=== PATIENT | male | born 1940 | race Caucasian/White ===

== ENCOUNTER 2018-09-06 16:01 | Emergency (ER) | payer OTHER ==
[~2018-09-06] VITALS: Ht 172.7 cm; Wt 70.0 kg
[~2018-09-06 16:01] MED LIST: CEPHALEXIN500 MG PO; LIPITOR20 MG PO; METFORMIN850 MG PO
[2018-09-06 16:49] VITALS: BP 134/60
== END 2018-09-06 17:00 | disposition home or self-care (01) | DRG 552 ==
LOC: ED 16:01
DX: M54.16 Radiculopathy, lumbar region (principal); E11.9 Type 2 diabetes mellitus without complications; E78.00 Pure hypercholesterolemia, unspecified

== ENCOUNTER 2022-09-21 15:35 | Observation (INO) | payer OTHER ==
[2022-09-21] VITALS (29 sets, daily range): BP systolic 46–155; BP diastolic 21–91
[~2022-09-21] VITALS: Ht 172.7 cm; Wt 63.6 kg
--- NOTE | 2022-09-21 15:55 | NUR ---
PT TO TX ROOM 9
--- NOTE | 2022-09-21 16:20 | NUR ---
PT IN ROOM, EKG COMPLETED, ORTHOSTATIC VITALS, COMPLETED, IV LINE STARTED. NAD
[2022-09-21 17:09] LABS: HEMATOCRIT 38.9 % (39.0-50.0); HEMOGLOBIN 13.3 g/dl (14.0-18.0); IMMATURE GRANULOCYTES 0.7 % (0.0-5.0); MEAN CELL VOLUME 95.3 fL CALC (80.0-100.0); MEAN CORPUSCULAR HGB 32.6 pG CALC (26.0-32.0); MEAN CORPUSCULAR HGB CONC 34.2 g/dL CAL (32.0-36.0); NEUT# 6.3 thou/uL (1.82-7.42); RED BLOOD COUNT 4.08 mill/uL (4.70-6.10); RED CELL DISTRI WIDTH 12.7 % (11.5-15.5)
[2022-09-21 17:25] LABS: ALBUMIN 4.1 g/dL (3.2-5.0); ALKALINE PHOSPHATASE 104 u/l (38-126); ANION GAP 15 (6-22 (CALC)); BUN 21 mg/dL (8-23); BUN/CREATININE RATIO 22 (12-20 (CALC)); CARBON DIOXIDE 25 mmol/l (22-30); CHLORIDE 97 mmol/l (95-108); CREATININE 0.9 mg/dL (0.7-1.3); GFR FOR AFR.AMER. > 60 ML/MIN (>=60 (CALC)); GFR OTHER RACES > 60 ML/MIN (>=60 (CALC)); POTASSIUM 4.4 mmol/l (3.5-5.1); SGOT/AST 38 u/l (19-48); SODIUM 132 mmol/l (137-146)
--- NOTE | 2022-09-21 17:30 | NUR ---
Reassessment of patient completed. No distress noted.
--- NOTE | 2022-09-21 18:28 | NUR ---
Reassessment of patient completed. No distress noted.
[2022-09-21 19:57] LABS: URINE BILIRUBIN - DIPSTICK NEGATIVE (NEGATIVE); URINE BLOOD DIPSTICK TRACE-INTACT (NEGATIVE); URINE COLOR YELLOW; URINE GLUCOSE - DIPSTICK NEGATIVE (NEGATIVE); URINE KETONE TRACE mg/dL (NEGATIVE); URINE LEUK ESTERASE NEGATIVE (NEGATIVE); URINE PROTEIN - DIPSTICK NEGATIVE (NEG-TRACE)
[2022-09-21 19:58] LABS: URINE NITRITE - DIPSTICK NEGATIVE (Negative)
--- NOTE | 2022-09-21 22:25 | NUR ---
RECEIVED PATIENT FROM ED, RESTING IN BED. ALERT AND ORIENTED X4. VSS, NO DISTRESS NOTED. ASSESSMENT COMPLETE. ORIENTED TO ROOM AND EDUCATED ON USE OF EQUIPMENT. NO CONCERNS EXPRESS. BED IN LOW POSITION, LOCKED AND ALARM ACTIVATED. CALL LIGHT WITHIN REACH, INSTRUCTED TO CALL FOR ASSISTANCE.
[2022-09-22] VITALS: BP 116/35
[2022-09-22 04:00] VITALS: BP 106/50; BP 116/56; BP 95/56
--- NOTE | 2022-09-22 04:00 | NUR ---
PATIENT REQUESTS ASSISTANCE TO AMBULATE TO RESTROOM, TOLERATED WELL, STANDBY ASSIST. DENIES PAIN AT THIS TIME. SUPERVISED BACK TO BED. CALL LIGHT IN REACH, BED ALARM ACTIVATED.
[2022-09-22 05:43] LABS: HEMATOCRIT 36.5 % (39.0-50.0); HEMOGLOBIN 12.3 g/dl (14.0-18.0); IMMATURE GRANULOCYTES 0.5 % (0.0-5.0); MEAN CELL VOLUME 96.3 fL CALC (80.0-100.0); MEAN CORPUSCULAR HGB 32.5 pG CALC (26.0-32.0); MEAN CORPUSCULAR HGB CONC 33.7 g/dL CAL (32.0-36.0); NEUT# 4.8 thou/uL (1.82-7.42); RED BLOOD COUNT 3.79 mill/uL (4.70-6.10); RED CELL DISTRI WIDTH 12.9 % (11.5-15.5)
[2022-09-22 06:17] LABS: ALBUMIN 3.6 g/dL (3.2-5.0); ALKALINE PHOSPHATASE 87 u/l (38-126); ANION GAP 10 (6-22 (CALC)); BILIRUBIN, TOTAL 0.7 mg/dL (0.0-1.4); BUN 18 mg/dL (8-23); BUN/CREATININE RATIO 17 (12-20 (CALC)); CARBON DIOXIDE 28 mmol/l (22-30); CHLORIDE 100 mmol/l (95-108); CREATININE 1.1 mg/dL (0.7-1.3); GFR FOR AFR.AMER. > 60 ML/MIN (>=60 (CALC)); GFR OTHER RACES > 60 ML/MIN (>=60 (CALC)); POTASSIUM 4.2 mmol/l (3.5-5.1); SGOT/AST 33 u/l (19-48); SODIUM 134 mmol/l (137-146); TOTAL PROTEIN 6.3 g/dL (6.3-8.2)
[2022-09-22 06:27] VITALS: BP 123/60
--- NOTE | 2022-09-22 08:00 | NUR ---
ASSESSMENT COMPLETED. PT RESTING IN BED. STATES NO PAIN. UPDATED PT IN CURREN TPLAN OF CARE. PT INIDCATED UNDERSTANDING. TELE MONTIOR IN PLACE. CONITNOUS MONITORING PER ED. TELE BOX #13 FALL/SAFTEY PRECAUITON IN PLACE, CALL LIGHT WITHIN REACH
[2022-09-22 11:03] VITALS: BP 104/55
--- NOTE | 2022-09-22 12:00 | NUR ---
PT RESTING IN BED WITH FAMILY MEMBER AT BEDSIDE. BREATHIGN EVEN AND UNLABORED. STATES NO NEEDS AT THIS TIME. FALL/SAFTEY PRECAution in place. call llightwithin reach
[2022-09-22 15:41] VITALS: BP 107/52
--- NOTE | 2022-09-22 16:00 | NUR ---
PT WATCHING TV. BREATHING EVEN AND LABORED. STATES NO PAIN. NO DISTRESS NOTED. FALL/SAFTEY PRECAUTION IN PLACE. CALL LIGHT WITHIN REACH.
[2022-09-22 18:39] VITALS: BP 102/55
--- NOTE | 2022-09-22 19:20 | NUR ---
PATIENT RESTING IN BED ON HIS RIGHT SIDE. ALERT AND ORIENTED. ABLE TO MAKE NEEDS KNOWN. ASSESSMENT COMPLETE. NO COMPLAINTS VOICED. NO SIGNS OF DISTRESS NOTED. BED REMAINS IN LOW POSITION. CALL YAÑEZ IN REACH.
[2022-09-23 00:01] VITALS: BP 133/65
--- NOTE | 2022-09-23 00:03 | NUR ---
PATIENT RESTING IN BED. NO COMPLAINTS VOICED AT THIS TIME. BED REMAINS IN LOW POSITION. CALL LIGHT AND BELONGINGS WITHIN REACH. BED ALARM ACTIVE FOR SAFETY.
[2022-09-23 03:45] VITALS: BP 120/60
[2022-09-23 04:00] VITALS: BP 120/60
--- NOTE | 2022-09-23 04:39 | NUR ---
PATIENT RESTING IN BED ON HIS RIGFHT SIDE. NO COMPLAINTS OF PAIN. NO SIGNS OF DISTRESS. PATIENT HASNT VOICED ANY SENSE OF DIZZINESS WHEN AMBULATING. BED REMAINS IN LOW POSITION. CALL YAÑEZ IN REACH.
[2022-09-23 06:01] LABS: HEMATOCRIT 36.2 % (39.0-50.0); HEMOGLOBIN 12.2 g/dl (14.0-18.0); IMMATURE GRANULOCYTES 0.3 % (0.0-5.0); MEAN CELL VOLUME 97.1 fL CALC (80.0-100.0); MEAN CORPUSCULAR HGB 32.7 pG CALC (26.0-32.0); MEAN CORPUSCULAR HGB CONC 33.7 g/dL CAL (32.0-36.0); NEUT# 4.35 thou/uL (1.82-7.42); RED BLOOD COUNT 3.73 mill/uL (4.70-6.10)
[2022-09-23 06:22] LABS: ALBUMIN 3.5 g/dL (3.2-5.0); ALKALINE PHOSPHATASE 106 u/l (38-126); ANION GAP 13 (6-22 (CALC)); BILIRUBIN, TOTAL 0.5 mg/dL (0.0-1.4); BUN 21 mg/dL (8-23); BUN/CREATININE RATIO 22 (12-20 (CALC)); CARBON DIOXIDE 28 mmol/l (22-30); CHLORIDE 101 mmol/l (95-108); CREATININE 0.9 mg/dL (0.7-1.3); GFR FOR AFR.AMER. > 60 ML/MIN (>=60 (CALC)); GFR OTHER RACES > 60 ML/MIN (>=60 (CALC)); POTASSIUM 3.8 mmol/l (3.5-5.1); SGOT/AST 36 u/l (19-48); SODIUM 138 mmol/l (137-146); TOTAL PROTEIN 6.3 g/dL (6.3-8.2)
[2022-09-23 06:45] VITALS: BP 107/58
--- NOTE | 2022-09-23 07:54 | NUR ---
0700 BEDSIDE REPORT RECEIVED FROM CARLTON NIXON. PT ALERT AND ORIENTED x4. PT UP AMBULATING IN HALLWAY WITH NO SIGNS OF DISTRESS NOTED. RESPIRATIONS EVENAND UNLABORED. PT UPDATED ON PLAN OF CARE AND VERBALIZES UNDERSTANDING AND DENIES QUESTIONS. SAFETY PRECAUTIONS IN PLACE.
[2022-09-23 10:32] VITALS: BP 105/51
[2022-09-23] MEDS ORDERED: LEVAQUIN750 M1 PO (11:11)
--- NOTE | 2022-09-23 13:29 | NUR ---
1315 IV REMOVED WITH TIP INTACT, NO IV RELATED COMPLICATIONS NOTED. TELEMETRY REMOVED. DC INSTRUCTIONS EXPLAINED TO PT AND , BOTH VERABLIZE UNDERSTANDING AND DENIES QUESTIONS. EDUCATION PROVIDED. PT ADVISED TO FOLLOW UP WITH A PCP WITHIN 1 WEEK. HAND PRESCRIPTION PROVIDED AND MEDICATION CALLED INTO [facility] PER PT REQUEST. PT DISCHARGED HOME WITH WITH ALL PERSONAL BELONGINGS.
== END 2022-09-23 13:15 | disposition home or self-care (01) | DRG 312 ==
LOC: ED 15:35 → MS2 19:53
PROVIDERS: Nurse Practitioner; Nurse Practitioner Family; ADMIT Internal Medicine; ATTEND Internal Medicine
DX: R55 Syncope and collapse (principal); J18.9 Pneumonia, unspecified organism; E11.9 Type 2 diabetes mellitus without complications; E78.00 Pure hypercholesterolemia, unspecified; Z79.84 Long term (current) use of oral hypoglycemic drugs; Z20.822 Contact with and (suspected) exposure to COVID-19
CPT/HCPCS: G0378; Q9967